=== PATIENT | female | born 1995 | race Two or more races ===

== ENCOUNTER 2025-07-16 22:16 | Emergency (ER) | payer SELFPAY ==
[~2025-07-16] VITALS: Ht 160 cm; Wt 79.4 kg
[2025-07-16] MEDS ORDERED: ACETAMINOPHEN ES 500 MG TABLET ONE (23:37)
[2025-07-16] MEDS: ACETAMINOPHEN ES 500 MG TABLET PO ONE (23:37)
[2025-07-17 00:51] LABS: PREGNANCY TEST URINE QUAL POSITIVE (NEGATIVE)
[2025-07-17 01:19] VITALS: BP 140/85; TEMP 97.9; O2SAT 97
== END 2025-07-17 01:19 | disposition home or self-care (01) ==
LOC: ER 22:19
DX: S00.83XA Contusion of other part of head, initial encounter (principal); S00.511A Abrasion of lip, initial encounter; R51.9 Headache, unspecified; Y04.0XXA Assault by unarmed brawl or fight, initial encounter; Y93.89 Activity, other specified; Y92.89 Other specified places as the place of occurrence of the external cause; Y99.8 Other external cause status
CPT/HCPCS: 70486-TC; 84703-TC